=== PATIENT | female | born 1995 | race Caucasian/White ===

== ENCOUNTER 2019-10-11 08:12 | Emergency (ER) | payer OTHER, SELFPAY ==
[2019-10-11 08:17] VITALS: BP 123/69; PULSE 99; RESP 18; TEMP 37.1; O2SAT 100
--- NOTE | 2019-10-11 08:27 | ED.GENADULT ---
HPI - General Adult General Chief complaint: Upper Respiratory Infection Stated complaint: sore throat/loss of smell Time Seen by Provider: 10/11/19 08:31 Source: patient Mode of arrival: ambulatory Limitations: no limitations History of Present Illness HPI narrative: 23-year-old female patient presents to the [facility] with complaints of a sore throat, congestion, cough that started yesterday. 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 Patient denies any fevers, body aches or chills. Patient denies taking anything for her symptoms since they started. Patient denies any chest pain or shortness of breath at this time. Related Data Home Medications Medication Instructions Recorded Confirmed norgestimate-ethinyl estradiol 1 tablet PO DAILY 10/11/19 10/11/19 [Sprintec (28)] Allergies Allergy/AdvReac Type Severity Reaction Status Date / Time amoxicillin Allergy Unknown Hives / Verified 10/11/19 08:28 Red Face clavulanic acid Allergy Unknown Hives / Verified 10/11/19 08:28 Red Face Review of Systems Review of Systems: Narrative: CONSTITUTIONAL: Denies fever, chills, or sweats. EYES: Denies visual changes, redness, or discharge. ENT: Positive rhinorrhea, congestion, sore throat, denies otalgia. CARDIOVASCULAR: Denies chest pain, palpitations, or edema. RESPIRATORY: Positive cough denies dyspnea. GASTROINTESTINAL: Denies abdominal pain, nausea, vomiting, or diarrhea. GENITOURINARY: Denies dysuria or hematuria. SKIN: Denies rash or itching. MUSCULOSKELETAL: Denies back pain, joint pain, or myalgia. NEUROLOGIC: Denies headache, numbness, or weakness. PSYCHIATRIC: Denies anxiety or depression. PMFSH Comments At the time of my signature I agree with nursing past medical history, surgical, social, and family history. There is no relevant family history pertinent to the presenting complaint. Exam Narrative: Exam Narrative: GENERAL: ill-appearing, well-nourished, and in no acute distress. HEAD: Normocephalic, atraumatic. EYES: PERRLA and EOMI. ENT: Nares with erythema and edema noted bilaterally, no rhinorrhea or epistaxis. Mucous membranes moist. Posterior pharynx with no erythema, tonsil enlargement, exudates or lesions present. Bilateral TMs are clear no erythema or foreign bodies to the canal. NECK: Supple. No lymphadenopathy CHEST: Clear to auscultation. No respiratory distress. HEART: Regular rate and rhythm. No murmur heard. Normal peripheral pulses. ABDOMEN: Soft, nontender, nondistended, normal active bowel sounds. EXTREMITIES: Normal range of motion. No edema. SKIN: Warm, dry, no rash. NEURO: No focal deficits. Alert and oriented x3. Course Vital Signs Vital signs: Vital Signs Temperature 37.1 C 10/11/19 08:17 Pulse Rate 99 10/11/19 08:17 Respiratory Rate 18 10/11/19 08:17 Blood Pressure 123/69 10/11/19 08:17 Pulse Oximetry 100 10/11/19 08:17 Temperature 37.1 C 10/11/19 08:17 Pulse Rate 99 10/11/19 08:17 Respiratory Rate 18 10/11/19 08:17 Blood Pressure 123/69 10/11/19 08:17 Pulse Oximetry 100 10/11/19 08:17 Vital signs reviewed. Medical Decision Making Differential Diagnosis Differential Diagnosis: Differential diagnosis: Allergic rhinitis, chronic sinusitis, tonsillitis, acute sinusitis, infectious mononucleosis, seasonal influenza, pertussis, diphtheria, meningococcal disease, viral syndrome, viral bronchitis, RSV, COVID-19 Discussed with patient that her strep test today is negative. Discussed with her that this could be possibly allergies causing her symptoms however because she works in a long-term care facility it is highly recommended that she gets COVID testing. Offered to send patient for testing however she states that she gets tested often at her work and she did call her work about her symptoms and they stated that they will test her today. Discussed with patient that she should stay
== END 2019-10-11 08:40 | disposition home or self-care (01) ==
PROVIDERS: Emergency Provider Nurse Practitioner Family
DX: J06.9 Acute upper respiratory infection, unspecified (principal); J02.9 Acute pharyngitis, unspecified
CPT/HCPCS: 87081; 87880; 99213; G0463

== ENCOUNTER 2019-11-13 11:47 | Emergency (ER) | payer OTHER, SELFPAY ==
[2019-11-13 12:09] VITALS: BP 127/67; PULSE 86; RESP 16; TEMP 37.1; O2SAT 100
--- NOTE | 2019-11-13 12:18 | ED.URI ---
HPI - URI/Sore Throat General Chief Complaint: Upper Respiratory Infection Stated Complaint: sore throat Time Seen by Provider: 11/13/19 12:18 Source: patient and RN notes reviewed History of Present Illness HPI Narrative: Patient is a 23-year-old female who presents the urgent care with complaints of a sore throat. Patient states that she woke up with a sore throat and denies of any other upper respiratory symptoms. States that she has been gargling salt water while at work but Hurting . Patient denies any use of [id number] medication. Denies of any fever, nausea, vomiting. No other acute complaints. No acute distress noted. Patient aware of the plan of care. Some parts of this dictation were generated by voice recognition software and may contain typographical and/or grammatical inaccuracies. Related Data Home Medications Medication Instructions Recorded Confirmed No Home Medications 11/13/19 11/13/19 Allergies Allergy/AdvReac Type Severity Reaction Status Date / Time amoxicillin Allergy Unknown Hives / Verified 11/13/19 12:16 Red Face clavulanic acid Allergy Unknown Hives / Verified 11/13/19 12:16 Red Face Review of Systems Review of Systems: Narrative: CONSTITUTIONAL: Denies fever, chills, or sweats. EYES: Denies visual changes, redness, or discharge. ENT: Reports of sore throat CARDIOVASCULAR: Denies chest pain, palpitations, or edema. RESPIRATORY: Denies cough or dyspnea. GASTROINTESTINAL: Denies abdominal pain, nausea, vomiting, or diarrhea. GENITOURINARY: Denies dysuria or hematuria. SKIN: Denies rash or itching. MUSCULOSKELETAL: Denies back pain, joint pain, or myalgia. NEUROLOGIC: Denies headache, numbness, or weakness. All other systems reviewed are negative, except as documented in HPI. PMFSH Comments At the time of my signature, I reviewed and agree with the nursing past medical, surgical, social, and family history. There is no relevant family history pertinent to the patient complaint. Exam Narrative: Exam Narrative: GENERAL: This is a well-nourished, well-developed patient, in no apparent distress. HEAD: normocephalic, atraumatic. EYES: PERRL. Sclera clear/white. Vision is grossly intact. EARS: External ears normal, auditory canals clear and without drainage, TMs normal without perforation. Hearing grossly intact. NOSE: External nose normal with no obvious nasal discharge, nares without redness, no rhinorrhea. THROAT: Mucous membranes moist, mild postnasal drainage without notable erythema or exudate NECK: Neck supple CARDIOVASCULAR: Regular rate and rhythm without murmurs, gallops, or rubs. RESPIRATORY: Clear to auscultation. Breath sounds equal bilaterally. No wheezes, rales, or rhonchi. SKIN: warm, intact with no suspicious lesions or rash, good texture and turgor. NEURO: awake, alert, and oriented to person, place and time. There were no obvious focal neurologic abnormalities. EXTREMITIES: No clubbing, cyanosis, or edema. Course Vital Signs Vital signs: Vital Signs Temperature 98.8 F 11/13/19 12:09 Pulse Rate 86 11/13/19 12:09 Respiratory Rate 16 11/13/19 12:09 Blood Pressure 127/67 11/13/19 12:09 Pulse Oximetry 100 11/13/19 12:09 Temperature 98.8 F 11/13/19 12:09 Pulse Rate 86 11/13/19 12:09 Respiratory Rate 16 11/13/19 12:09 Blood Pressure 127/67 11/13/19 12:09 Pulse Oximetry 100 11/13/19 12:09 Reviewed MDM - URI/Sore Throat MDM Narrative Medical decision making narrative: Reviewed lab results with the patient. She is aware that strep swab was negative. Educated patient on culture we will call within 72 hours is positive and antibiotics are necessary. Advised the patient to use [id number] medication such as Claritin and Flonase for symptom relief. Do not sleep with the windows open or a fan on. Use a humidifier at night. Follow-up with your PCP within 2 to 5 days or for worsening symptoms or failure to improve. Differe
== END 2019-11-13 12:35 | disposition home or self-care (01) ==
PROVIDERS: Emergency Provider Nurse Practitioner Family
DX: J02.9 Acute pharyngitis, unspecified (principal)
CPT/HCPCS: 87081; 87880; 99213; G0463